=== PATIENT | female | born 1980 | race Caucasian/White ===

== ENCOUNTER 2016-05-13 09:21 | Emergency (ER) | payer OTHER ==
[~2016-05-13] VITALS: Ht 152.4 cm; Wt 45.4 kg
[~2016-05-13 09:21] MED LIST: ALBUTEROL0.09 MG/A1 INH; CIPROFLOXACIN500 MG PO; GUAIFENESIN-COD10 ML PO; MOXIFLOXACIN H400 M1 PO; NASONEX17 GM NASB; PERCOCET 325 MG1 TA2 PO; PREDNISONE10 MG PO; PROAIR HFA8.5 GM INH; TESSALON PERLE100 M1 PO; VICODIN5-300 PO; ZITHROMAX Z-PA250 M1 PO; ZOFRAN 4 MG TABL4 MG PO; ZYVOX600 MG PO
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
[2016-05-13] MEDS ORDERED: TRAMADOL HCL50 M1 PO (12:05)
[2016-05-13] MEDS ORDERED: KEFLEX500 M1 PO (12:05)
--- NOTE | 2016-05-13 13:17 | CT SCAN REPORT ---
EXAMINATION: CT ABDOMEN AND PELVIS WITHOUT CONTRAST CLINICAL INFORMATION: Back pain. RBC in urinalysis. Rule out kidney stone COMPARISON: 03/19/2015 TECHNIQUE: Multidetector volumetric imaging was performed from the superior aspect of the liver through the pubic symphysis. Sagittal and coronal reformatted images were obtained on the technologist's workstation. DLP: 226 mGy-cm FINDINGS: LUNG BASES: The visualized lung bases are unremarkable. LIVER, GALLBLADDER, AND BILIARY TREE: The liver is normal in size, shape, and attenuation. No focal hepatic lesion or biliary ductal dilatation is present. The gallbladder is unremarkable with no evidence of radiopaque gallstones, gallbladder wall thickening, or obvious pericholecystic inflammatory changes. PANCREAS: Unremarkable. SPLEEN: Unremarkable. ADRENAL GLANDS: Unremarkable. KIDNEYS AND URETERS: The kidneys are normal in size, shape, and attenuation. No hydronephrosis, hydroureter, or calculi seen. No perinephric stranding. Multiple calcifications in the pelvis are unchanged from the prior study and consistent with phleboliths. BLADDER: Bladder wall is mildly thickened, potentially due to underlying inflammation. GASTROINTESTINAL TRACT: Stomach, small bowel, and colon are normal in caliber. No bowel wall thickening or surrounding inflammation. Appendix is not discretely seen, there are no secondary findings of acute appendicitis are identified. ABDOMINAL WALL: No significant hernia is appreciated. LYMPH NODES: Normal. VASCULAR: Unremarkable. PELVIC VISCERA: Uterus is normal in size and appearance. Ovaries not significant changed from the prior study, representing at the posterolateral aspects of the uterus adjacent to the rectum. OSSEOUS STRUCTURES: Minimal facet arthropathy in the lower lumbar spine. The sclerotic 1 cm focus in the right iliac bone is unchanged from prior and likely a bone island or benign fibro-osseous lesion. Bone island is again seen in the left sacral ala. IMPRESSION: 1. Normal appearance of the kidneys and ureters. No nephrolithiasis, hydronephrosis, or ureterolithiasis. 2. Mild bladder wall thickening. Query symptoms of cystitis/urinary tract infection.
[2016-05-13 13:47] VITALS: BP 145/78
== END 2016-05-13 13:48 ==
LOC: ERH 09:21
DX: T21.22XA Burn of second degree of abdominal wall, initial encounter (principal); M54.5 Low back pain; N39.0 Urinary tract infection, site not specified; X11.8XXA Contact with other hot tap-water, initial encounter
CPT/HCPCS: 74176; 81001; 81025